=== PATIENT | male | born 1985 | race African-American/Black ===

== ENCOUNTER 2023-07-07 22:06 | Inpatient (IN) ==
[2023-07-08 01:14] LABS: Urine Appearance Clear; Urine Bilirubin Negative (Negative); Urine Blood Negative (Negative); Urine Color Yellow; Urine Glucose Negative (Negative); Urine Ketones 1+ (Negative); Urine Nitrite Negative (Negative); Urine Protein Negative (Negative); Urine Specific Gravity 1.026 (1.002-1.030); Urine Urobilinogen Positive (Negative)
[2023-07-08 01:20] LABS: ABS Eosinophils 0.2 10^3/uL (0.0-0.5); ABS Monocytes 0.3 10^3/uL (0.0-1.1); ABS Neutrophils 2.4 10^3/uL (1.5-7.6); ABS Nucleated RBC 0.01 10^3/ul; Eosinophil % 2.7 %; Hematocrit 45.7 % (38-53); Hemoglobin 15.6 g/dL (13.2-16.3); Lymphocyte % 50.2 %; Mean Corpuscular Hemoglobin 31.8 pg (27-33); Mean Corpuscular Hgb Conc 34.2 g/dL (31-36); Mean Platelet Volume 9.1 fL (7.5-11.2); Nucleated Red Blood Cells % 0.2 /100 WBC (0.0-0.4); Platelet Count 240 10^3/uL (150-450); Red Blood Count 4.91 10^6/uL (4.06-5.63); Red Cell Distribution Width 13.6 % (12-17)
[2023-07-08 01:28] LABS: Urine Benzodiazepine Screen None Detected (None Detect); Urine Cannabinoids Screen None Detected (None Detect); Urine Opiates Screen None Detected (None Detect)
[2023-07-08 01:36] LABS: ALT 14 U/L (7-52); AST 19 U/L (13-39); Albumin 4.2 g/dL (3.2-5.2); Albumin/Globulin Ratio 1.8 (1-3); Alkaline Phosphatase 125 U/L (35-149); Anion Gap 10 mmol/L (2-16); Blood Urea Nitrogen 11 mg/dL (6-24); CO2 Carbon Dioxide 26 mmol/L (22-32); Calcium 8.8 mg/dL (8.6-10.3); Chloride 107 mmol/L (101-111); Creatinine, Serum 0.95 mg/dL (0.67-1.17); Globulin 2.4 g/dL (2-4); Glucose 78 mg/dL (70-100); Sodium 143 mmol/L (135-145); Total Protein 6.6 g/dL (6.4-8.9)
[2023-07-08 01:48] LABS: Acetaminophen < 15 mcg/mL; Alcohol, S < 13 mg/dL (<13); Salicylate < 2.50 mg/dL (<30)
[2023-07-08 02:03] LABS: TSH Ultra Thyroid Stim Horm 0.78 mcIU/mL (0.34-5.60)
[2023-07-08] MEDS ORDERED: Al Hydrox/Mg Hydrox/Simet LIQ 30 ML UDC PO PRN (09:08)
[2023-07-08] MEDS ORDERED: Paliperidone SUSTENNA 234 MG/1.5 ML IM ONE (09:10)
[2023-07-09] MEDS ORDERED: Paliperidone SUSTENNA 234 MG/1.5 ML IM ONE (09:00)
[2023-07-11] MEDS ORDERED: Nicotine GUM 4MG FRUIT FLAVOR PO PRN (13:47)
[2023-07-14] MEDS ORDERED: Paliperidone SUSTENNA 156 MG/1 ML IM ONE (10:00)
[2023-07-16 09:16] VITALS: BP 121/73
[2023-08-09] MEDS ORDERED: Paliperidone SUSTENNA 234 MG/1.5 ML IM SCH (09:00)
[2023-08-09] MEDS ORDERED: Paliperidone SUSTENNA 234 MG/1.5 ML IM ONE (09:00)
== END 2023-07-16 10:30 | disposition home or self-care (01) | DRG 885 ==
LOC: ED 22:06 → EDHOLD 07-08 09:08 → BSU 07-08 11:01
PROVIDERS: ADMIT Psychiatry & Neurology Psychiatry; ATTEND Psychiatry & Neurology Psychiatry